=== PATIENT | male | born 1940 | race Caucasian/White ===

== ENCOUNTER 2020-02-29 22:49 | Emergency (ER) | payer MEDICARE, OTHER, SELFPAY ==
[2020-02-29 23:13] VITALS: BP 111/71; PULSE 66; RESP 16; TEMP 36.8; O2SAT 99; BMI 25.8
[2020-03-01] VITALS: BP 151/65; PULSE 66; RESP 16; TEMP 36.8; O2SAT 100
--- NOTE | 2020-03-01 00:32 | ED_ITS ---
HPI - Male Genitourinary General Chief complaint: Urogenital-Male Stated complaint: Catheter Issues Time Seen by Provider: 03/01/20 00:29 Source: patient History of Present Illness HPI Narrative: This is a 79-year-old male who presents with concerns regarding his catheter after the entire system was changed out today. He states that he is concerned that the urine has not been draining as usual in terms of amount. He denies any associated pain, fevers, chills. Related Data Home Medications Medication Instructions Recorded Confirmed donepezil 5 mg tablet 5 mg PO BEDTIME 02/27/20 tetracycline 250 mg capsule mg PO 02/27/20 Previous Rx's Medication Instructions Recorded ciprofloxacin HCl 250 mg tablet 250 mg PO BID 14 Days #28 tab 02/29/20 Allergies Allergy/AdvReac Type Severity Reaction Status Date / Time No Known Allergies Allergy Verified 02/27/20 13:33 [No Known Allergies*] Review of Systems Review of Systems: Pertinent positives and negatives as stated in HPI and 10 point review of systems is otherwise negative. PMFSH Past Medical History Source: nursing notes reviewed Medical History Cognitive decline Surgical History History of removal of cyst Family History Family History Father Esophageal cancer Mother Cerebral aneurysm Social History Social History Alcohol intake: never Smoking Status: Never smoker Use of substances other than those prescribed or required for medical reasons: No Advance Directives: No Advance Directives Information Provided: No Physical Exam Vital Signs: Vital Signs: Vital Signs Temp Pulse Resp BP Pulse Ox 03/01/20 00:00 98.3 F 66 16 151/65 H 100 02/29/20 23:13 98.3 F 66 16 111/71 99 Body Mass Index 25.8 VITAL SIGNS: Reviewed. GENERAL: Well developed, well nourished, in no acute distress. HEAD: Normocephalic/atraumatic, EYES: PERRLA, EOMI intact without pain, no nystagmus/pallor/icterus noted EARS: Ext canals without abnormality, TMs non-bulging and non-erythematous NOSE: Nares patent bilateral OROPHARYNX: no oral lesions noted, posterior pharynx clear and non-erythematous without noted tonsillar enlargement/erythema/exudates NECK: Supple, no adenopathy LUNGS: Normal breath sounds. No adventitious sounds or accessory muscle use. SpO2 <99> CARDIOVASCULAR: Regular rate and rhythm without noted murmurs, no JVD or lower extremity edema. ABDOMEN: Soft, non-tender, non-distended with bowel sounds. No rigidity. No guar ding. No palpable masses or hernias noted : Bunch catheter in place with clear yellow urine in the leg bag. MUSCULOSKELETAL: No tenderness, deformities, or effusions noted on gross inspection. EXTREMITIES: No cyanosis, clubbing or edema. SKIN: Inspection of the skin reveals no rashes, ulcerations, jaundice, pallor, or petechiae. NEUROLOGIC: Alert and oriented x 4. Strength and sensation to light touch were grossly intact x 4. Course Course Course Narrative: This is a 79-year-old male with history and clinical presentation of possible malfunction of Bunch catheter. Bladder scanned the bedside shows 20 cc of urine within the bladder which was communicated to the patient. He was reassured that the Bunch catheter is functioning as it should be and that he was stable for discharge to home. He was encouraged to return should he notice that there was no urine in the leg bag, or developed lower abdominal pain or discomfort, or fevers / chills. Discharge Plan Discharge Clinical Impression: Bunch catheter status Patient Disposition: Home, Self-Care Instructions: Bunch Catheter Placement and Care (ED) Additional Instructions: The patient and/or family acknowledge understanding of results (as applicable), diagnosis, treatment plan, need for follow up, and symptoms that should prompt a return to the emergency room. Prescriptions: No Action donepezil 5 mg tablet 5 mg PO BEDTIME RF: 0 tetracycline 250 mg capsule PO RF: 0 ciprofloxacin HCl 250 mg tablet 250 mg PO BID 14 Days Qty: 28 RF: 0 Referrals: Jayesh Urbina MD [Primary Care Provider] - 2 days ( for further management of the Bunch catheter care)
== END 2020-03-01 01:19 | disposition home or self-care (01) ==
PROVIDERS: Emergency Provider Student in an Organized Health Care Education/Training Program; PCP Internal Medicine
DX: T83.9XXA Unspecified complication of genitourinary prosthetic device, implant and graft, initial encounter (principal); Y73.8 Miscellaneous gastroenterology and urology devices associated with adverse incidents, not elsewhere classified; Y92.9 Unspecified place or not applicable; Z79.899 Other long term (current) drug therapy
CPT/HCPCS: 51703; 51798; 99283; 99284

== ENCOUNTER 2020-03-27 23:54 | Emergency (ER) | payer MEDICARE, OTHER, SELFPAY ==
[2020-03-28 00:01] VITALS: BP 145/80; PULSE 71; RESP 20; TEMP 36.4; O2SAT 100; BMI 25.7
--- NOTE | 2020-03-28 00:27 | ED_ITS ---
HPI - Male Genitourinary General Chief complaint: Urogenital-Male Stated complaint: catheter leaking Time Seen by Provider: 03/28/20 00:21 Source: patient Mode of arrival: EMS History of Present Illness HPI Narrative: 79-year-old male with chronic indwelling Bunch states here secondary to leakage of his Bunch at the insertion at his penis. Patient states no pain no fevers no chills no testicular pain. Patient states due to have a replaced in a couple of days and if we could just change it now. No abdominal pain or nausea no vomiting no fevers Related Data Home Medications Medication Instructions Recorded Confirmed tetracycline 250 mg capsule mg PO 02/27/20 Previous Rx's Medication Instructions Recorded donepezil 5 mg tablet 5 mg PO BEDTIME #90 tab 03/17/20 Allergies Allergy/AdvReac Type Severity Reaction Status Date / Time No Known Allergies Allergy Verified 03/28/20 00:00 [No Known Allergies*] Review of Systems Review of Systems: Constitutional : No Weight loss, No Fever, No Chills, No Ni ght Sweats, No Fatigue, No Malaise ENT/Mouth : No Hearing loss, No Ear Pain, No Nasal Congestion, No Sinus Pain, No Hoarseness, No sore throat, No Rhinorrhea, No Swallowing Difficulty Eyes: No Eye Pain, No Swelling, No Redness, No Foreign Body, No Discharge, No Vision Changes Cardiovascular : No Chest Pain, No SOB, No Dyspnea on Exertion, No Orthopnea, No Edema, No Palpitations Respiratory : No Cough, No Sputum, No Wheezing, No Smoke Exposure, No Dyspnea Gastrointestinal : No Nausea, No Vomiting, No Diarrhea, No Constipation, No abdominal Pain, No Hematochezia, No Melena Genitourinary : no irregular bleeding, No Dysuria, No Urinary Frequency, No Hematuria, Chronic indwelling Bunch Musculoskeletal : No joint pain, No Myalgias, No Joint Swelling Skin : No Skin Lesions, No rash Neuro : No Weakness, No Numbness, No Paresthesias, No Loss of Consciousness, No Dizziness, No Headache Psych : No Anxiety/Panic, No Depression, No SI/HI/AH/VH, No Social Issues, Heme/Lymph: No Bruising, No Bleeding,No Lymphadenopathy Endocrine : No Polyuria, No Polydipsia, No Temperature Intolerance [facility] Past Medical History Medical History Cognitive decline Surgical History History of removal of cyst Family History Family History Father Esophageal cancer Mother Cerebral aneurysm Social History Social History Alcohol intake: never Smoking Status: Never smoker Advance Directives: No Advance Directives Information Provided: Yes Physical Exam Vital Signs: Vital Signs: Last Vital Signs Temp 97.6 F 03/28/20 00:01 Pulse 71 03/28/20 00:01 Resp 20 03/28/20 00:01 BP 145/80 H 03/28/20 00:01 Pulse Ox 100 03/28/20 00:01 Body Mass Index 25.7 Vital signs reviewed Appearance: Alert. Oriented X3. No acute distress. Eyes: Pupils equal, round and reactive to light. ENT: Pharynx normal. Neck: Normal inspection. Neck supple. No lymph nodes noted. No crepitus CVS: Normal heart rate and rhythm. Pulses normal. Normal S1 and S2 Respiratory: No respiratory distress. Breath sounds normal. No Wheezing. No rales Abdomen: Soft and nontender. No rigidity. No distention. good BS x4 Skin: Skin warm and dry. Normal skin color. Normal skin turgor. Extremities: No lower extremity edema. Neurovascular intact to all extremities. No Lacerations. No Rash Neuro: Oriented X 3. No motor deficit. No sensory deficit. Moving all extermities. No slurred speech. Genital: No testicular tenderness. Chronic indwelling Bunch intact without drainage at penis insertion. No penile erythema no abscess Course Course Course Narrative: Chronic Bunch replaced by staff recommend to follow up with his urologist on Tuesday in which he has an appointment Positive flow Discharge Plan Discharge Clinical Impression: Complication of Bunch catheter Qualifiers: Encounter type: initial encounter Qualified Code(s): T83.9XXA - Unspecified complication of genitourinary prosthetic device, implant and graft, initial encounter Patient Disposition: Home, Self-Care Instructions: Bunch Catheter Placement and Care (ED) Prescriptions: No Action donepezil 5 mg tablet 5 mg PO BEDTIME Qty: 90 RF: 8 tetracycline 250 mg capsule PO RF: 0 [place] [facility] [place] [facility] [place] [facility] [place] Group[place] - 2 days
--- NOTE | 2020-03-28 01:07 | PC.NURSE ---
OLD SMART CATHETER REMOVED BY THIS RN. PATIENT REPORTS LEAKING AROUND OLD SMART CATHETER TUBING. DRIED CRUST NOTED AROUND TIP OF PENIS, CLEANED AND REMOVED BY THIS RN. NO OPEN WOUNDS NOTED ON PENIS. NEW 16F SMART CATHETER INSERTED BY THIS RN. DRAINING CLEAR YELLOW URINE INTO LEG BAG. LEG BAG SECURED TO PATIENT'S LEFT LEG. PLAN FOR DISCHARGE HOME SHORTLY, PER . WILL CONTINUE TO MONITOR.
== END 2020-03-28 01:25 | disposition home or self-care (01) ==
PROVIDERS: Emergency Provider Emergency Medicine; PCP Internal Medicine
DX: T83.9XXA Unspecified complication of genitourinary prosthetic device, implant and graft, initial encounter (principal); X58.XXXA Exposure to other specified factors, initial encounter; Z79.899 Other long term (current) drug therapy
CPT/HCPCS: 99283; 99284

== ENCOUNTER → 2020-04-18 14:17 | Outpatient (BNVA) | payer MEDICARE, OTHER, SELFPAY | PROVIDERS: PCP Internal Medicine; Visit Provider Urology | DX: N40.1 Benign prostatic hyperplasia with lower urinary tract symptoms (principal); N13.8 Other obstructive and reflux uropathy | CPT/HCPCS: 51701; 51702; 99212 ==

== ENCOUNTER → 2020-05-16 13:03 | Outpatient (BNVA) | payer MEDICARE, SELFPAY | PROVIDERS: PCP Internal Medicine; Visit Provider Urology | DX: Z46.6 Encounter for fitting and adjustment of urinary device (principal) | CPT/HCPCS: 51701 ==

== ENCOUNTER → 2020-06-12 09:52 | Outpatient (BNVA) | payer MEDICARE, SELFPAY | PROVIDERS: PCP Internal Medicine; Visit Provider Urology | DX: N40.1 Benign prostatic hyperplasia with lower urinary tract symptoms (principal); N31.8 Other neuromuscular dysfunction of bladder; N13.8 Other obstructive and reflux uropathy; R33.8 Other retention of urine; Z46.6 Encounter for fitting and adjustment of urinary device | CPT/HCPCS: 51701; 51702; 99212 ==

== ENCOUNTER → 2020-07-11 13:54 | Outpatient (BNVA) | payer MEDICARE, OTHER, SELFPAY | PROVIDERS: PCP Internal Medicine; Visit Provider Urology | DX: Z46.6 Encounter for fitting and adjustment of urinary device (principal) | CPT/HCPCS: 51701; 51702; 99212; Q3014 ==

== ENCOUNTER → 2020-08-08 13:55 | Outpatient (BNVA) | payer MEDICARE, OTHER, SELFPAY | PROVIDERS: PCP Internal Medicine; Visit Provider Urology | DX: R33.9 Retention of urine, unspecified (principal) | CPT/HCPCS: 51701; 51702; 99212 ==

== ENCOUNTER → 2020-09-05 14:34 | Outpatient (BNVA) | payer MEDICARE, OTHER, SELFPAY | PROVIDERS: PCP Internal Medicine; Visit Provider Urology | DX: Z46.6 Encounter for fitting and adjustment of urinary device (principal); R33.9 Retention of urine, unspecified | CPT/HCPCS: 51701; 51702; 51705; 99212 ==

== ENCOUNTER → 2020-10-03 14:08 | Outpatient (BNVA) | payer MEDICARE, OTHER, SELFPAY | PROVIDERS: PCP Internal Medicine; Visit Provider Urology | DX: Z46.6 Encounter for fitting and adjustment of urinary device (principal); R33.9 Retention of urine, unspecified | CPT/HCPCS: 51701; 51702; 51705; 99212 ==

== ENCOUNTER → 2020-10-31 14:05 | Outpatient (BNVA) | payer MEDICARE, OTHER, SELFPAY | PROVIDERS: PCP Internal Medicine; Visit Provider Urology | DX: Z46.6 Encounter for fitting and adjustment of urinary device (principal); R33.9 Retention of urine, unspecified | CPT/HCPCS: 51701; 51702; 51705; 99212 ==

== ENCOUNTER → 2020-11-28 13:38 | Outpatient (BNVA) | payer MEDICARE, OTHER, SELFPAY | PROVIDERS: PCP Internal Medicine; Visit Provider Urology | DX: R33.9 Retention of urine, unspecified (principal) | CPT/HCPCS: 51701; 51702; 99212 ==

== ENCOUNTER → 2020-12-30 14:37 | Outpatient (BNVA) | payer MEDICARE, OTHER, SELFPAY | PROVIDERS: PCP Internal Medicine; Visit Provider Urology | DX: Z46.6 Encounter for fitting and adjustment of urinary device (principal); R33.9 Retention of urine, unspecified | CPT/HCPCS: 51701; 51705; 99212 ==

== ENCOUNTER → 2021-01-30 14:22 | Outpatient (BNVA) | payer MEDICARE, OTHER, SELFPAY | PROVIDERS: PCP Internal Medicine; Visit Provider Urology | DX: R33.9 Retention of urine, unspecified (principal) | CPT/HCPCS: 51705 ==

== ENCOUNTER → 2021-02-27 14:24 | Outpatient (BNVA) | payer MEDICARE, OTHER, SELFPAY | PROVIDERS: PCP Internal Medicine; Visit Provider Urology | DX: Z46.6 Encounter for fitting and adjustment of urinary device (principal); R33.9 Retention of urine, unspecified | CPT/HCPCS: 51705 ==

== ENCOUNTER → 2021-03-30 12:55 | Outpatient (BNVA) | payer MEDICARE, SELFPAY | PROVIDERS: PCP Internal Medicine; Visit Provider Urology | DX: N13.8 Other obstructive and reflux uropathy (principal) | CPT/HCPCS: 51705 ==

== ENCOUNTER → 2021-04-27 13:29 | Outpatient (BNVA) | payer MEDICARE, OTHER, SELFPAY | PROVIDERS: PCP Internal Medicine; Visit Provider Urology | DX: R33.9 Retention of urine, unspecified (principal) | CPT/HCPCS: 51705 ==

== ENCOUNTER → 2021-05-25 13:24 | Outpatient (BNVA) | payer MEDICARE, OTHER, SELFPAY | PROVIDERS: Visit Provider Urology | DX: R33.9 Retention of urine, unspecified (principal) | CPT/HCPCS: 51705 ==

== ENCOUNTER → 2021-06-23 13:23 | Outpatient (BNVA) | payer MEDICARE, OTHER, SELFPAY | PROVIDERS: PCP Internal Medicine; Visit Provider Urology | DX: R33.9 Retention of urine, unspecified (principal) | CPT/HCPCS: 51702; 51705 ==

== ENCOUNTER → 2021-07-20 13:20 | Outpatient (BNVA) | payer MEDICARE, OTHER, SELFPAY | PROVIDERS: PCP Internal Medicine; Visit Provider Urology | DX: Z46.6 Encounter for fitting and adjustment of urinary device (principal); Z96.0 Presence of urogenital implants | CPT/HCPCS: 51702 ==

== ENCOUNTER 2021-08-10 08:45 | Outpatient (REF) | payer MEDICARE, OTHER, SELFPAY ==
[2021-08-10 11:32] LABS: Hematocrit 44.7 % (42.0-52.0); Hemoglobin 14.5 g/dl (14.0-18.0); Mean Corpuscular HGB Conc 32.4 g/dl (31.0-36.0); Mean Corpuscular Hemoglobin 30.4 pg (27.0-33.0); Mean Corpuscular Volume 93.7 fL (80.0-98.0); Mean Platelet Volume 9.5 fL (9.4-12.4); Platelet Count 266 X10*3/uL (160-400); Red Blood Count 4.77 X10*6/uL (4.60-5.80); Red Cell Distribution Width 12.3 % (11.0-16.0); White Blood Count 6.8 X10*3/uL (4.8-10.8)
[2021-08-10 11:38] LABS: Alanine Aminotransferase 23 U/L (0-40); Albumin Level 4.3 g/dL (3.5-5.0); Alkaline Phosphatase 70 U/L (39-117); Anion Gap 13 (12-20); Aspartate Amino Transferase 22 U/L (5-37); Bilirubin Total 0.7 mg/dL (0.0-1.0); Blood Urea Nitrogen 21 mg/dL (9-16); Calcium 9.8 mg/dL (8.4-10.2); Carbon Dioxide 27 mmol/L (22-29); Chloride 105 mmol/L (96-108); Cholesterol 320 mg/dL; Estimated Glomerular Filt Rate 49; Glucose Fasting 94 mg/dL (60-99); HDL Cholesterol 57 mg/dL; LDL Cholesterol Calculated 219 mg/dl; Potassium 4.3 mmol/L (3.3-5.1); Sodium 141 mmol/L (135-145); Total Protein 6.9 g/dL (6.5-8.0); Triglycerides 222 mg/dL
[2021-08-10 12:04] LABS: Prostate Specific Antigen Scr 44.19 ng/mL (<0.05-4.0)
== END 2021-08-10 08:46 | disposition home or self-care (01) ==
LOC: HO.HMGCLDS 08:45
PROVIDERS: PCP Internal Medicine; Visit Provider Nurse Practitioner Family
DX: Z00.00 Encounter for general adult medical examination without abnormal findings (principal); Z12.5 Encounter for screening for malignant neoplasm of prostate; E78.00 Pure hypercholesterolemia, unspecified; F41.9 Anxiety disorder, unspecified
CPT/HCPCS: 36415; 80053; 80061; 84153; 85027

== ENCOUNTER → 2021-08-18 13:24 | Outpatient (BNVA) | payer MEDICARE, OTHER, SELFPAY | PROVIDERS: PCP Internal Medicine; Visit Provider Urology | DX: R33.9 Retention of urine, unspecified (principal) | CPT/HCPCS: 51702 ==

== ENCOUNTER 2021-09-15 13:35 | Outpatient (AMB) | payer MEDICARE, OTHER, SELFPAY ==
--- NOTE | 2021-09-15 13:36 | A.OFFVIS_ITS ---
Intake Intake Visit Reasons: PSA follow up/4 week Cath Change(PSA?) Intake Note: Patient is present for psa/ catheter change Classification Inspector Required: No Accompanied by: Self / Same As Patient Allergies amoxicillin Allergy (Unknown, Verified 01/28/22 15:07) Unknown [id number] Reductase Inhibitor Allergy (Unknown, Verified 01/28/22 15:07) Unknown Medication List - Last Reconciled 09/15/21 by Jhony Cote MD ciprofloxacin HCl 250 mg PO BID 30 days donepezil 5 mg PO BEDTIME erythromycin 0.5 inches ophthalmic (eye) BID finasteride 5 mg PO DAILY 90 days urinary bag (Urinary Leg Bag) As directed urinary bag ([facility] Urinary Leg Bag) Change weekly HPI HPI Comments History of Present Illness Details Iván is a pleasant male. He is a patient of Dr Urbina - urinary retention Catheter change would suggest changing catheter monthly at facility Developing dementia Urinary retention Bladder has not recovered following episode of urinary retention Laser to prostate March 2019 Bunch catheter changed today with antibiotic coverage Discussed use of cap to cycle bladder Review in 4 weeks for catheter change PSA 10/16 8.1, 08/21 44 PFSH Medical History Cognitive decline Surgical History History of removal of cyst Family History Father Esophageal cancer Mother Cerebral aneurysm Social History Housing: Condominium Alcohol intake: unknown Patient Tobacco Use Status: Never used Tobacco e-Cigarette/Vaping Use: Never Used Second Hand Smoke Exposure: No Advance Directives: Yes Advance Directives on File: Yes Advance Directives Date on File: 10/22/21 service: Yes Current occupational status: retired Cognitive needs: No Hearing needs: No Vision needs: Yes (glasses) Review of Systems Const Denies chills and Denies fever(s) Card Reports no additional complaints and Denies syncope Resp Denies cough GI Denies abdominal pain and Denies heartburn Reports as per HPI and Denies change in libido Neuro Denies syncope Psych Denies change in libido Endo Denies change in libido Physical Exam Const General: cooperative, healthy appearing, comfortable and no acute distress Orientation/consciousness: patient oriented x3 HEENT Face and sinus: Yes normal facial exam Mouth: moist mucous membranes Neck Neck: Yes normal visual inspection, Yes full ROM and Yes trachea midline Chest Chest palpation & inspection: normal inspection of the chest Resp Effort & Inspection: normal respiratory effort, able to speak in complete sentences and no respiratory distress GI Inspection: Yes normal to inspection Back/Spine/Pelvis Cervical Spine: normal cervical lordosis Thoracic/Lumbar Spine: thoracic and lumbar spine normal to inspection Skin General skin exam: no rashes or lesions noted Neuro General: patient oriented x3, gait normal, tone normal and moves all extremities Extrem General: Yes normal to inspection and Yes capillary refill normal Office Procedures Bladder/Catheter Procedure 43582-[id number] Bladder Catheter (Patient had 18 fr catheter. Urine in leg bag was yellow and clear. Catheter was removed with no complications. New 18 fr catheter was placed with 10cc of sterile water in balloon) Procedure code (CPT) selection complete Assessment & Plan Assessment & Plan (1) Urinary retention with incomplete bladder emptying: Code(s): R33.9 - Retention of urine, unspecified (2) BPH w urinary obs/LUTS: Code(s): N40.1 - Benign prostatic hyperplasia with lower urinary tract symptoms; N13.8 - Other obstructive and reflux uropathy Orders: Orders PSA,Total (Free>4and<10) 2 Months N40.1 - Benign prostatic hyperplasia with lower urinary tract symptoms, N13.8 - Other obstructive and reflux uropathy AMB Bladder/Catheter Procedure 09/15/21 R33.9 - Retention of urine, unspecified Medications: New finasteride 5 mg PO DAILY 90 tabs 1RF 90 days R33.9 - Retention of urine, unspecified, C61 - Malignant neoplasm of prostate Patient Instructions: Imaging studies, laboratory and physical exam results were discussed and reviewed in detail. No major barriers to patient understanding were identified. An opportunity to ask questions regarding the treatment plan was provided. All questions were answered. The patient expressed understanding and agreement with the above treatment plan. The patient is aware they should contact our office by phone for worsening of their current condition or the appearance of new urologic symptoms. Compliance is encouraged with any medications and followup testing that is ordered. It is a privilege to participate in the urologic care of your patient. If you have any questions or concerns regarding treatment for the above conditions, or other urologic issues, please do not hesitate to contact me. The office telephone contact is [phone]. This note is constructed using voice recognition software. While every effort has been made to ensure accuracy machine set up errors may have been included. Yours sincerely, Dr Jhony Cote MD, [facility] - Urology Providers of Expert, Compassionate Care for the Genitourinary System Coding Level of Care Code Est Pt Level 3 (03385) Diagnoses Urinary retention with incomplete bladder emptying R33.9 BPH w urinary obs/LUTS N40.1; N13.8 CPT Codes Bladder/Catheter Procedure - CPT: 78891-[id number] Bladder Catheter ([id number])
== END 2021-09-15 14:23 | disposition home or self-care (01) ==
LOC: HO.HUSH 13:35
PROVIDERS: PCP Internal Medicine; Visit Provider Urology
DX: R33.9 Retention of urine, unspecified (principal); N40.1 Benign prostatic hyperplasia with lower urinary tract symptoms; N13.8 Other obstructive and reflux uropathy
CPT/HCPCS: 51701; 99213

== ENCOUNTER → 2021-09-15 13:35 | Outpatient (BNVA) | payer MEDICARE, OTHER, SELFPAY | PROVIDERS: PCP Internal Medicine; Visit Provider Urology | DX: N40.1 Benign prostatic hyperplasia with lower urinary tract symptoms (principal); N13.8 Other obstructive and reflux uropathy; R33.9 Retention of urine, unspecified | CPT/HCPCS: 51701; 99212 ==

== ENCOUNTER → 2021-10-13 13:19 | Outpatient (BNVA) | payer MEDICARE, OTHER, SELFPAY | PROVIDERS: PCP Internal Medicine; Visit Provider Urology | DX: Z46.6 Encounter for fitting and adjustment of urinary device (principal); R33.9 Retention of urine, unspecified | CPT/HCPCS: 51702 ==

== ENCOUNTER 2021-10-22 08:50 | Emergency (ER) | payer MEDICARE, OTHER, SELFPAY ==
--- NOTE | 2021-10-22 08:56 | ED_ITS ---
HPI - General Adult General Chief complaint: Urogenital-Male Stated complaint: F/C LEAKING,AMS Time Seen by Provider: 10/22/21 08:56 Source: patient, family (sister) and EMS Mode of arrival: EMS Limitations: altered mental status (patient has a history of dementia) History of Present Illness HPI narrative: Patient is a 80 year old male presenting to the emergency department today with possible catheter leaking. Patient states that his dang catheter is leaking. Patient's sister states that the patient has been obsessed with the catheter being wrong however, it isn't. Patient's sister states that the patient has worsening dementia and she would like to seek placement for him. Patient denies any dizziness, lightheadedness, abdominal pain, nausea, vomiting, fever, chills, blurry vision, double vision, loss of vision, chest pain, difficulty breathing, shortness of breath, back pain, night sweats, blood in his urine or stool, syncope or a near syncopal episode, recent trauma or falls, bowel incontinence, bowel retention, bladder retention, or any other complaints at this time. Relieving factors: none Exacerbating factors: none Associated symptoms: denies other symptoms Treatments prior to arrival: none Related Data Previous Rx's Medication Instructions Recorded urinary bag ([place] Urinary Leg Bag) #4 ea 11/28/20 urinary bag (Urinary Leg Bag) #3 ea 11/28/20 donepezil 5 mg tablet 5 mg PO BEDTIME #90 tabs 05/25/21 ciprofloxacin HCl 250 mg tablet 250 mg PO BID 30 days #60 tabs 09/15/21 finasteride 5 mg tablet 5 mg PO DAILY 90 days #90 tabs 09/15/21 atorvastatin 20 mg tablet 20 mg PO DAILY #90 tabs 09/25/21 sulfamethoxazole 800 1 tab PO BID 7 days #14 tabs 10/19/21 mg-trimethoprim 160 mg tablet (Bactrim DS) Allergies Allergy/AdvReac Type Severity Reaction Status Date / Time No Known Allergies Allergy Verified 09/25/21 13:58 [No Known Allergies*] Review of Systems Constitutional: Constitutional: Reports no additional constitutional complaints, Denies chills, Denies fever(s) and Denies night sweats Eyes: Eyes: Reports no additional eye complaints, Denies blurry vision, Denies change in vision, Denies diplopia, Denies eye discharge, Denies loss of vision and Denies eye pain ENT: Denies dizziness Cardiovascular: Cardiovascular: Reports no additional cardiovascular complaints, Denies chest pain, Denies lightheadedness, Denies Loss of Consciousness and Denies dyspnea Respiratory: Respiratory: Reports no additional respiratory complaints and Denies dyspnea Gastrointestinal: Gastrointestinal: Reports no additional gastrointestinal complaints, Denies abdominal pain, Denies melena, Denies hematochezia, Denies change in bowel habits and Denies change in stool character Genitourinary: Genitourinary: Reports no additional male genitourinary complaints, Denies hematuria and Denies oliguria Comments: dang catheter in place Musculoskeletal: Musculoskeletal: Reports no additional musculoskeletal complaints, Denies numbness and Denies tingling Neurologic: Reports confusion, Denies dizziness, Denies loss of vision, Rep orts memory loss, Denies numbness and Denies tingling Psychiatric: Psychiatric: Reports no additional psychiatric complaints, Reports confusion and Reports memory loss Endocrine: Endocrine: Reports no additional endocrine complaints Hematologic/Lymphatic: Hematologic/Lymphatic: Reports no additional hematologic/lymphatic complaints Allergic/Immunologic: Allergic/Immunologic: Reports no additional allergic/immunologic complaints [facility] Past Medical History Attestation statement: The following information was validated with the patient. Source: old records reviewed Surgical History History of removal of cyst Family History Family History Father Esophageal cancer Mother Cerebral aneurysm Social History Social History Housing: Condominium Alcohol intake: unknown Patient Tobacco Use Status: Never used Tobacco Smoked in Last 30 Days: No e-Cigarette/Vaping Use: Never Used Second Hand Smoke Exposure: No Use of substances other than those prescribed or required for medical reasons: Unknown Advance Directives: Yes Advance Directives Information Provided: No Advance Directives on File: No service: Yes Current occupational status: retired Cognitive needs: No Hearing needs: No Vision needs: Yes (glasses) Physical Exam ED Vital Signs: Vital Signs - 24 hr 10/22/21 09:07 10/22/21 10:36 10/22/21 12:00 Temperature 98.5 F 98.5 F Pulse Rate 82 82 69 Respiratory Rate 18 19 Blood Pressure 177/94 H 177/94 H 171/93 H Pulse Oximetry 100 100 98 Oxygen Delivery Method Room Air Room Air 10/22/21 15:52 Temperature 97.9 F Pulse Rate 70 Respiratory Rate 16 Blood Pressure 177/77 H Pulse Oximetry 100 Oxygen Delivery Method Room Air BMI result Body Mass Index 24.8 Const General: confusion Nutritional Appearance: well nourished Orientation/consciousness: confusion Limitations: no limitations HENMT Head: Yes normal to inspection and Yes atraumatic Ears: hearing grossly normal bilaterally and external ears normal General nose exam: Normal external nose present, no nasal discharge noted and no epistaxis Face and sinus: Yes normal facial exam, No abrasion and No laceration Mouth: Normal oral and palatal mucosa present, no drooling and no muffled voice Eyes General: appearance normal, both eyes and all related structures Periorbital: periorbital findings normal Eyelids: Yes eyelids normal Conjunctivae: conjunctivae normal Pupils: Equal, round and reactive pupils present EOM: EOMs intact bilaterally Neck Neck: Yes normal visual inspection, Yes full ROM and Yes no lymphadenopathy Chest Chest palpation & inspection: normal inspection of the chest Resp Effort & Inspection: normal respiratory effort and able to speak in complete sentences Auscultation: clear to auscultation bilaterally Cardio Rate: regular rate Rhythm: regular rhythm GI Inspection: Yes normal to inspection Other: dang catheter in place Neuro General: confusion Cranial nerves: Yes Equal, round and reactive pupils present Motor exam (neuro): 5/5 motor strength present throughout Sensory Exam: Normal double simultaneous stimulation for sensation Coordination: [id number] test normal Extrem General: Yes normal to inspection, Yes full ROM and Yes capillary refill normal Psych Appearance: grossly normal Mental Status: mental status grossly normal Affect: normal affect Attitude: cooperative Thought process: Normal thought process present Thought content: Normal thought content present Insight: Good insight present (Psych) Medical Decision Making MDM Narrative Medical decision making narrative: Patient is a 80 year old male presenting to the emergency department today for SNF placement. Patient's physical exam showed a pleasantly demented individual with a dang catheter that is draining appropriately, in place. Patient's blood work was unremarkable. Patient's urine showed no acute process. I explained my physical exam findings as well as all test results to the patient and the patient's sister. I answered all questions asked by the patient and the patien t's sister. Patient evaluated by PT who recommends the patient go to short term rehab then halfway rehab transition. Patient has been accepted at a SNF and will be discharged to their facility. Differential Diagnosis Differential Diagnosis: SNF placement, dementia Medical Records Medical records reviewed: Yes I reviewed the patient's medical records. Lab Data Lab results reviewed: Yes I reviewed the patient's lab results. Result diagrams: 10/22/21 09:24 10/22/21 09:24 Labs: Lab Results 10/22/21 10/22/21 10/22/21 Range/Units 09:24 09:24 09:24 WBC 6.5 (4.8-10.8) X10*3/uL RBC 4.20 L (4.60-5.80) X10*6/uL Hgb 12.8 L (14.0-18.0) g/dl Hct 39.0 L (42.0-52.0) % MCV 92.9 (80.0-98.0) fL MCH 30.5 (27.0-33.0) pg MCHC 32.8 (31.0-36.0) g/dl RDW 12.2 (11.0-16.0) % Plt Count 209 (160-400) X10*3/uL MPV 9.5 (9.4-12.4) fL Immature Gran % (Auto) 0.5 H (0.0-0.4) % Neut % (Auto) 70.0 (45-73) % Lymph % (Auto) 19.4 L (20-40) % [place] % (Auto) 7.4 (2-11) % Eos % (Auto) 2.2 (0-4) % Baso % (Auto) 0.5 (0-2) % Lymph # (Auto) 1.3 (1.2-4.9) X10*3/uL [place] # (Auto) 0.5 (0.1-1.2) X10*3/uL Eos # (Auto) 0.1 (0.0-0.4) X10*3/uL Baso # (Auto) 0.0 (0.0-0.2) X10*3/uL Abs Immat Gran (auto) 0.03 (0.00-0.03) X10*3/uL Absolute Neuts (auto) 4.5 (2.0-8.3) x10*3/uL Absolute Nucleated RBC 0.000 (0.0-0.012) X10*3/uL Nucleated RBC % (auto) 0.0 (0.0-0.2) /100WBC Sodium 140 (135-145) mmol/L Potassium 4.5 (3.3-5.1) mmol/L Chloride 106 (96-108) mmol/L Carbon Dioxide 26 (22-29) mmol/L Anion Gap 13 (12-20) BUN 21 H (9-16) mg/dL Creatinine 1.80 H (0.5-1.4) mg/dL Estim Creat Clear Calc 36.0 Estimated GFR 37 Random Glucose 103 (60-115) mg/dL Calcium 9.3 (8.4-10.2) mg/dL Magnesium 2.3 (1.6-2.6) mg/dL Total Bilirubin 0.6 (0.0-1.0) mg/dL AST 26 (5-37) U/L ALT 26 (0-40) U/L Alkaline Phosphatase 70 (39-117) U/L Total Protein 6.8 (6.5-8.0) g/dL Albumin 4.4 (3.5-5.0) g/dL Urine Color Urine Appearance Urine pH (5.0-8.0) Ur Specific [place] (1.005-1.025) Urine Protein (NEG-TRACE) MG/DL Urine Glucose (UA) (NEG) MG/DL Urine Ketones (NEG) MG/DL Urine Blood (NEG) Urine Nitrite (NEG) Ur Leukocyte Esterase (NEG) Urine RBC (0) /HPF Urine WBC (0-4) /HPF Ur Squamous Epith Cells /LPF Urine Bacteria /LPF Urine Yeast /HPF COVID-19 ([facility]) Negative (Negative) COVID-19 Clin Com See Note 10/22/21 Range/Units 09:58 WBC (4.8-10.8) X10*3/uL RBC (4.60-5.80) X10*6/uL Hgb (14.0-18.0) g/dl Hct (42.0-52.0) % MCV (80.0-98.0) fL MCH (27.0-33.0) pg MCHC (31.0-36.0) g/dl RDW (11.0-16.0) % Plt Count (160-400) X10*3/uL MPV (9.4-12.4) fL Immature Gran % (Auto) (0.0-0.4) % Neut % (Auto) (45-73) % Lymph % (Auto) (20-40) % [place] % (Auto) (2-11) % Eos % (Auto) (0-4) % Baso % (Auto) (0-2) % Lymph # (Auto) (1.2-4.9) X10*3/uL [place] # (Auto) (0.1-1.2) X10*3/uL Eos # (Auto) (0.0-0.4) X10*3/uL Baso # (Auto) (0.0-0.2) X10*3/uL Abs Immat Gran (auto) (0.00-0.03) X10*3/uL Absolute Neuts (auto) (2.0-8.3) x10*3/uL Absolute Nucleated RBC (0.0-0.012) X10*3/uL Nucleated RBC % (auto) (0.0-0.2) /100WBC Sodium (135-145) mmol/L Potassium (3.3-5.1) mmol/L Chloride (96-108) mmol/L Carbon Dioxide (22-29) mmol/L Anion Gap (12-20) BUN (9-16) mg/dL Creatinine (0.5-1.4) mg/dL Estim Creat Clear Calc Estimated GFR Random Glucose (60-115) mg/dL Calcium (8.4-10.2) mg/dL Magnesium (1.6-2.6) mg/dL Total Bilirubin (0.0-1.0) mg/dL AST (5-37) U/L ALT (0-40) U/L Alkaline Phosphatase (39-117) U/L Total Protein (6.5-8.0) g/dL Albumin (3.5-5.0) g/dL Urine Color STRAW Urine Appearance HAZY Urine pH 7.0 (5.0-8.0) Ur Specific [place] 1.010 (1.005-1.025) Urine Protein NEG (NEG-TRACE) MG/DL Urine Glucose (UA) NEG (NEG) MG/DL Urine Ketones NEG (NEG) MG/DL Urine Blood 1+ H (NEG) Urine Nitrite POS H (NEG) Ur Leukocyte Esterase 3+ H (NEG) Urine RBC 1-4 (0) /HPF Urine WBC 30-49 H (0-4) /HPF Ur Squamous Epith Cells NONE /LPF Urine Bacteria TRACE /LPF Urine Yeast 3+ /HPF COVID-19 ([facility]) (Negative) COVID-19 Clin Com Discharge Plan Discharge Clinical Impression: Cognitive decline Patient Disposition: Xfer Inpatient Rehab Fac Transfer Details: [facility] Instructions: Dementia (ED) Additional Instructions: Follow up with your primary care provider. Return to the emergency department immediately if your symptoms worsen or if you develop any dizziness, shortness of breath, difficulty breathing, chest pain, blurry vision, loss of vision, nausea, vomiting, abdominal pain, fever, chills, back pain, or any other com plaints. Prescriptions: No [facility] donepezil 5 mg tablet 5 mg PO BEDTIME Qty: 90 8RF sulfamethoxazole-trimethoprim [Bactrim DS] 800-160 mg tablet 1 tab PO BID 7 Days Qty: 14 0RF atorvastatin 20 mg tablet 20 mg PO DAILY Qty: 90 8RF (DME) [place] Urinary Leg Bag Misc See Rx Instructions .MEDSUPPLY Qty: 4 5RF Rx Instructions: Change weekly (DME) Urinary Leg Bag Misc See Rx Instructions .MEDSUPPLY Qty: 3 1RF Rx Instructions: As directed ciprofloxacin HCl 250 mg tablet 250 mg PO BID 30 Days Qty: 60 0RF Label Comments: 1 before and after catheter change Rx Instructions: Take 1 tablet twice a day day before, day of and day after catheter change finasteride 5 mg tablet 5 mg PO DAILY 90 Days Qty: 90 1RF Referrals: [facility] [Outside] Print Language: Romansh
[2021-10-22 08:57] VITALS: BP 168/70; PULSE 78; O2SAT 98
[2021-10-22 09:07] VITALS: BP 177/94; PULSE 82; RESP 18; TEMP 36.9; O2SAT 100; BMI 24.8
[2021-10-22 09:29] LABS: MANUAL DIFF FLAG NO
[2021-10-22 09:33] LABS: Basophils Percent Auto 0.5 % (0-2); Eosinophils Absolute Auto 0.1 X10*3/uL (0.0-0.4); Eosinophils Percent Auto 2.2 % (0-4); Hemoglobin 12.8 g/dl (14.0-18.0); Imm Gran Abs Auto 0.03 X10*3/uL (0.00-0.03); Imm Gran Pct Auto 0.5 % (0.0-0.4); Lymphocytes Absolute Auto 1.3 X10*3/uL (1.2-4.9); Lymphocytes Percent Auto 19.4 % (20-40); Mean Corpuscular HGB Conc 32.8 g/dl (31.0-36.0); Mean Corpuscular Hemoglobin 30.5 pg (27.0-33.0); Mean Corpuscular Volume 92.9 fL (80.0-98.0); Mean Platelet Volume 9.5 fL (9.4-12.4); Monocytes Absolute Auto 0.5 X10*3/uL (0.1-1.2); Monocytes Percent Auto 7.4 % (2-11); Neutrophils Absolute Auto 4.5 x10*3/uL (2.0-8.3); Platelet Count 209 X10*3/uL (160-400); Red Cell Distribution Width 12.2 % (11.0-16.0); White Blood Count 6.5 X10*3/uL (4.8-10.8)
[2021-10-22 09:49] LABS: Alanine Aminotransferase 26 U/L (0-40); Albumin Level 4.4 g/dL (3.5-5.0); Alkaline Phosphatase 70 U/L (39-117); Anion Gap 13 (12-20); Aspartate Amino Transferase 26 U/L (5-37); Bilirubin Total 0.6 mg/dL (0.0-1.0); Blood Urea Nitrogen 21 mg/dL (9-16); Calcium 9.3 mg/dL (8.4-10.2); Carbon Dioxide 26 mmol/L (22-29); Chloride 106 mmol/L (96-108); Estimated Glomerular Filt Rate 37; Glucose Random 103 mg/dL (60-115); Magnesium 2.3 mg/dL (1.6-2.6); Potassium 4.5 mmol/L (3.3-5.1); Sodium 140 mmol/L (135-145); Total Protein 6.8 g/dL (6.5-8.0)
[2021-10-22 10:06] LABS: Appearance Urine HAZY; Color Urine STRAW; Glucose Urine UA NEG (NEG); Leukocyte Esterase Urine 3+ (NEG); Nitrite Urine POS (NEG); UACC Culture Trigger YES; Urine Blood 1+ (NEG); Urine Ketones NEG (NEG); Urine Protein NEG (NEG-TRACE)
[2021-10-22 10:07] LABS: COVID-19 Test Negative (Negative); IDNOW Serial# 55D5AD1C
[2021-10-22 10:19] LABS: WBC Urine 30-49 /HPF (0-4)
[2021-10-22 10:20] LABS: Bacteria Urine TRACE /LPF
[2021-10-22 10:36] VITALS: BP 177/94; PULSE 82; O2SAT 100
--- NOTE | 2021-10-22 10:42 | PC.NURSE ---
Pt reports to the ED today stating that his catheter has been leaking and dripping down his leg for one week. This engineering technical writer and DARSHAN Garcia assessed his catheter, no leakage, discharge or redness noted. Urine sample obtained. Pt is alert to self only. Bilateral foot/ankle 3+ edema noted, pts sister states edema has been present for 10+ years with no issues. Pts sister requested to speak with case management about possible nursing home placement for pt. Pts sister spoke with Adrienne, Catering Truck Driver.
--- NOTE | 2021-10-22 10:46 | MHC.CM.ED ---
Addendum entered by Lizette Nava 10/22/21 13:52: [facility] [address] [facility]'t [facility] a bed to offer. Cindy aware referral broadcasted in [facility]. [facility] is next choice. They're unable to offer a bed at this time. [facility] is next choice. [facility] is able to offer a bed. Patient can leave at 4pm. Patient, Radha White RN and Michelle EDMOND aware. [facility] booked. Med nec with chart. Continue to monitor for d/c needs. Original Note: Received case management consult from Michelle EDMOND. Patient came to the ER due to AMS and a leaking dang. Work up essentially negative. Physical therapy eval completed. Short term rehab is recommended. Patient has a history of dementia. Met with patient's sister, Cindy at [facility]. Patient came to Cindy's house 2 years ago to stay and has been living there ever since. Patient has been experiencing increased falls and dementia symptoms. Cindy has a copy of patient's HCP. Patient received Moderna vaccines 08/20/20, 09/17/20 and 04/10/21. Cindy requesting referral to [facility] [address]. Referral made via [facility]. Continue to monitor for d/c needs.
--- NOTE | 2021-10-22 11:38 | PHA.MEDREC ---
Pharmacy Consult ? Medication Reconciliation Pharmacy has completed the medication reconciliation Spoke with sister Cindy, she confirmed all medications. All medications were last taken last night, bactrim was taken this morning.
[2021-10-22 12:00] VITALS: BP 171/93; PULSE 69; RESP 19; TEMP 36.9; O2SAT 98
[2021-10-22 15:52] VITALS: BP 177/77; PULSE 70; RESP 16; TEMP 36.6; O2SAT 100
== END 2021-10-22 16:37 ==
PROVIDERS: Physician Assistant Medical; Emergency Provider Student in an Organized Health Care Education/Training Program; PCP Internal Medicine
DX: F03.90 Unspecified dementia, unspecified severity, without behavioral disturbance, psychotic disturbance, mood disturbance, and anxiety (principal); Z96.0 Presence of urogenital implants; Z20.822 Contact with and (suspected) exposure to COVID-19
CPT/HCPCS: 80053; 81001; 83735; 85025; 87086; 87635; 97162; 99284

== ENCOUNTER 2021-11-21 22:00 | Emergency (ER) | payer MEDICARE, OTHER, SELFPAY ==
--- NOTE | ~2021-11-21 | CT_ITS ---
EXAMINATION: NONCONTRAST HEAD CT NONCONTRAST CERVICAL SPINE CT INDICATION INFORMATION: Fall, head injury and neck pain COMPARISON: 11/22/2019 TECHNIQUE: Separate noncontrast CT examinations of the head and cervical spine were performed. Coronal head CT images and coronal and sagittal cervical spine images were created at the technologist workstation. DLP: 1117 mGy-cm DOSE LOWERING TECHNIQUES: This CT examination was performed using dose optimization techniques as appropriate, variously including the following: - Automated exposure control - Adjustment of mA and/or kV according to patient size (this includes techniques or standardized protocols for targeted exams were dose is matched to indication/reason for exam; i.e. extremities or head) - Use of iterative reconstruction technique FINDINGS: Head: Limited assessment in some regions due to motion artifact. There is no evidence of acute intracranial hemorrhage or territorial infarction. No abnormal mass-effect or midline shift is seen. [place]wood to white matter differentiation is well preserved. No extra-axial fluid collections are identified. The ventricles are normal in size. There is mild periventricular white matter hypoattenuation consistent with chronic small vessel ischemic disease. Moderate volume loss is noted. The osseous structures and soft tissues are normal. The mastoid air cells and visualized portions of the paranasal sinuses are well-aerated. Cervical spine: There is anatomic alignment of the vertebral bodies and posterior elements. Vertebral body heights are maintained. There is disc space narrowing of the lower cervical spine with associated endplate osteophytes. There is degenerative change at the atlantodens articulation. There is mild to moderate facet arthropathy, left-sided greater than right. No evidence of acute fracture. No prevertebral soft tissue swelling. Left submandibular calcification noted. Visualized portions of the lung apices are unremarkable. The thyroid gland is unremarkable. CT/CT cervical spine wo con IMPRESSION: No acute findings identified in the head or cervical spine. Chronic appearing and degenerative changes as noted above.
[2021-11-21 22:10] VITALS: BP 122/74; PULSE 88; O2SAT 96
[2021-11-21 22:18] VITALS: BP 127/64; PULSE 75; RESP 16; O2SAT 97; BMI 25.1
--- NOTE | 2021-11-21 22:26 | ED.FALL ---
HPI - Fall General Chief Complaint: Fall Stated Complaint: ?fall Time Seen by Provider: 11/21/21 22:13 Source: patient (Patient has cognitive deficits is oriented to person only, lacks insight as to why he is here) and EMS Mode of arrival: EMS Limitations: other (As above, limited this patient is a poor informant secondary to cognitive deficits) History of Present Illness HPI Narrative: 80-year-old male who was brought in to the emergency department from his nursing facility for an unwitnessed fall. The patient was found several feet away from his bed on the floor. The nursing staff believes that he may have fallen out of bed but this was unwitnessed. There was no reported down time and it is unclear when he was last seen. EMS report that the patient complained of right shoulder pain but had no difficulty moving her shoulder. Patient does have known cognitive deficits, he is oriented to person but has no insight as to why he is here in the emergency department MD complaint: fall Onset (ago): unknown Fall from: out of bed Fall witnessed: no Place fall occurred: shelter/SNF Loss of consciousness: unsure Prolonged down time: unclear Symptoms prior to fall: other (Unknown) Context: other (Unknown) Related Data Previous Rx's Medication Instructions Recorded urinary bag ([facility] Urinary Leg Bag) #4 ea 11/28/20 urinary bag (Urinary Leg Bag) #3 ea 11/28/20 donepezil 5 mg tablet 5 mg PO BEDTIME #90 tabs 05/25/21 ciprofloxacin HCl 250 mg tablet 250 mg PO BID 30 days #60 tabs 09/15/21 finasteride 5 mg tablet 5 mg PO DAILY 90 days #90 tabs 09/15/21 atorvastatin 20 mg tablet 20 mg PO DAILY #90 tabs 09/25/21 sulfamethoxazole 800 1 tab PO BID 7 days #14 tabs 10/19/21 mg-trimethoprim 160 mg tablet (Bactrim DS) cephalexin 500 mg capsule 500 mg PO TID 5 days #15 caps 11/22/21 Allergies Allergy/AdvReac Type Severity Reaction Status Date / Time No Known Allergies Allergy Verified 09/25/21 13:58 [No Known Allergies*] Review of Systems Review of Systems: Yes Other (Unobtainable secondary to cognitive deficits) [facility] Past Medical History [facility] Narrative: Past medical history: Hyperlipidemia, BPH, anxiety, cognitive deficits. Social history: The patient resides at a detention facility. He denied tobacco, alcohol and drug use. Medical History (Updated 11/22/21 @ 01:31 by Serg Ruth MD) Cognitive decline Surgical History History of removal of cyst Family History Family History Father Esophageal cancer Mother Cerebral aneurysm Social History Social History Housing: Condominium Alcohol intake: unknown Patient Tobacco Use Status: Never used Tobacco e-Cigarette/Vaping Use: Never Used Second Hand Smoke Exposure: No Advance Directives: No Advance Directives Information Provided: No service: Yes Current occupational status: retired Cognitive needs: No Hearing needs: No Vision needs: Yes (glasses) Physical Exam Vital Signs: Vital Signs: Last Vital Signs Pulse 75 11/21/21 22:18 Resp 16 11/21/21 22:18 BP 127/64 11/21/21 22:18 Pulse Ox 97 11/21/21 22:18 O2 Del Method 11/21/21 22:18 BMI result Body Mass Index 25.1 Const: Other: Awake, alert, elderly male patient, oriented to person only, lacks insight as to why he is here, has no complaints, he is in a C-collar HEENT: Head: Yes normal to inspection, Yes normocephalic and Yes atraumatic Ears: external ears normal General nose exam: Normal external nose present Face and sinus: Yes normal facial exam Mouth: Normal oral and palatal mucosa present Throat: Yes posterior oropharynx normal Eyes: General: appearance normal, both eyes and all related structures Pupils: Equal, round and reactive pupils present Neck: Neck: Yes normal visual inspection, Yes no lymphadenopathy, Yes trachea midline and Yes supple Chest: Chest palpation & inspection: normal inspection of the chest and normal palpation of entire chest wall Resp: Effort & Inspection: normal respiratory effort and able to speak in complete sentences Auscultation: clear to auscultation bilaterally Cardio: Rate: regular rate Rhythm: regular rhythm Heart sounds: S1 normal heart sound present, S2 normal heart sound present and no murmurs GI: Inspection: Yes normal to inspection Palpation (GI): Soft to palpation, nontender and no guarding Auscultation: normal bowel sounds : General: Yes no CVA tenderness Back/Spine/Pelvis: Back: no CVA tenderness Skin: General skin exam: no rashes or lesions noted Neuro: Cranial nerves: Yes CN's II-XII intact bilaterally and Yes Equal, round and reactive pupils present Motor exam (neuro): 5/5 motor strength present throughout Extrem: General: Yes normal to inspection Psych: Appearance: well kempt Speech and movement: Normal speech and movement present Affect: normal affect Attitude: cooperative Course Course Course Narrative: 80-year-old male who resides at a detention facility who was found lying on the floor, several feet away from his bed. The patient's fall was unwitnessed, there was no reported down time. The patient initially complained of right shoulder pain to EMS but has no complaints here in the emergency department. He is oriented to person only and has no insight as to why he is here. He is in a C-collar. Vital signs were normal. Examination was unremarkable. Given his unwitnessed fall and his age I did order laboratory evaluation to include CBC, CMP, lipase, urinalysis (patient has an indwelling Bunch catheter) CPK, CT scan of the head and cervical spine. 0122: Laboratory evaluation: WBC elevated 19,500. BUN elevated 24 with a normal creatinine of 1.2. Glucose elevated 137. CK slightly elevated at 183. Urinalysis revealed 1+ protein, 3+ blood, positive nitrates, 2+ leukocyte esterase. Microscopic revealed 5-9 RBCs, too numerous to count WBCs, 4+ bacteria-this was obtained from the patient's Bunch catheter. Radiology evaluation: CT scan of the head and cervical spine were unremarkable. Given the patient's elevated WBC and positive urinalysis/microscopic I am concerned that he may have a urinary tract infection. I will start the patient on Keflex 500 mg 3 times a day for 5 days. Received his 1st dose of Keflex 500 mg orally here in the emergency department. I did review the patient's last urine culture on 10/22/2021 and he grew greater than 100,000 CFU mixed joey. The patient will be discharged back to his nursing facility. - Fall Lab Data Result diagrams: 11/21/21 22:28 11/21/21 22:28 Labs: Lab Results 11/21/21 11/21/2122 Range/Units 22:28 22:28 22:28 WBC 19.5 H (4.8-10.8) X10*3/uL RBC 4.31 L (4.60-5.80) X10*6/uL Hgb 13.2 L (14.0-18.0) g/dl Hct 40.3 L (42.0-52.0) % MCV 93.5 (80.0-98.0) fL MCH 30.6 (27.0-33.0) pg MCHC 32.8 (31.0-36.0) g/dl RDW 11.7 (11.0-16.0) % Plt Count 387 D (160-400) X10*3/uL MPV 8.9 L (9.4-12.4) fL Immature Gran % (Auto) 0.7 H (0.0-0.4) % Neut % (Auto) 85.7 H (45-73) % Lymph % (Auto) 7.2 L (20-40) % [place] % (Auto) 5.4 (2-11) % Eos % (Auto) 0.8 (0-4) % Baso % (Auto) 0.2 (0-2) % Lymph # (Auto) 1.4 (1.2-4.9) X10*3/uL [place] # (Auto) 1.1 (0.1-1.2) X10*3/uL Eos # (Auto) 0.2 (0.0-0.4) X10*3/uL Baso # (Auto) 0.0 (0.0-0.2) X10*3/uL Abs Immat Gran (auto) 0.13 H (0.00-0.03) X10*3/uL Absolute Neuts (auto) 16.7 H (2.0-8.3) x10*3/uL Absolute Nucleated RBC 0.000 (0.0-0.012) X10*3/uL Nucleated RBC % (auto) 0.0 (0.0-0.2) /100WBC Sodium 142 (135-145) mmol/L Potassium 4.4 (3.3-5.1) mmol/L Chloride 105 (96-108) mmol/L Carbon Dioxide 28 (22-29) mmol/L Anion Gap 13 (12-20) BUN 24 H (9-16) mg/dL Creatinine 1.20 (0.5-1.4) mg/dL Estim Creat Clear Calc 54.0 Estimated GFR 59 Random Glucose 137 H (60-115) mg/dL Calcium 9.4 (8.4-10.2) mg/dL Total Bilirubin 0.5 (0.0-1.0) mg/dL AST 31 (5-37) U/L ALT 51 H (0-40) U/L Alkaline Phosphatase 107 D (39-117) U/L Total Creatine Kinase 183 H (38-174) U/L Total Protein 6.9 (6.5-8.0) g/dL Albumin 3.7 (3.5-5.0) g/dL Lipase 91 H (8-78) U/L Urine Color Urine Appearance Urine pH (5.0-8.0) Ur Specific [place] (1.005-1.025) Urine Protein (NEG-TRACE) MG/DL Urine Glucose (UA) (NEG) MG/DL Urine Ketones (NEG) MG/DL Urine Blood (NEG) Urine Nitrite (NEG) Ur Leukocyte Esterase (NEG) Urine RBC (0) /HPF Urine WBC (0-4) /HPF Ur Squamous Epith Cells /LPF Urine Bacteria /LPF COVID-19 ([facility]) Negative (Negative) COVID-19 Clin Com See Note 11/21/21 Range/Units 22:29 WBC (4.8-10.8) X10*3/uL RBC (4.60-5.80) X10*6/uL Hgb (14.0-18.0) g/dl Hct (42.0-52.0) % MCV (80.0-98.0) fL MCH (27.0-33.0) pg MCHC (31.0-36.0) g/dl RDW (11.0-16.0) % Plt Count (160-400) X10*3/uL MPV (9.4-12.4) fL Immature Gran % (Auto) (0.0-0.4) % Neut % (Auto) (45-73) % Lymph % (Auto) (20-40) % [place] % (Auto) (2-11) % Eos % (Auto) (0-4) % Baso % (Auto) (0-2) % Lymph # (Auto) (1.2-4.9) X10*3/uL [place] # (Auto) (0.1-1.2) X10*3/uL Eos # (Auto) (0.0-0.4) X10*3/uL Baso # (Auto) (0.0-0.2) X10*3/uL Abs Immat Gran (auto) (0.00-0.03) X10*3/uL Absolute Neuts (auto) (2.0-8.3) x10*3/uL Absolute Nucleated RBC (0.0-0.012) X10*3/uL Nucleated RBC % (auto) (0.0-0.2) /100WBC Sodium (135-145) mmol/L Potassium (3.3-5.1) mmol/L Chloride (96-108) mmol/L Carbon Dioxide (22-29) mmol/L Anion Gap (12-20) BUN (9-16) mg/dL Creatinine (0.5-1.4) mg/dL Estim Creat Clear Calc Estimated GFR Random Glucose (60-115) mg/dL Calcium (8.4-10.2) mg/dL Total Bilirubin (0.0-1.0) mg/dL AST (5-37) U/L ALT (0-40) U/L Alkaline Phosphatase (39-117) U/L Total Creatine Kinase (38-174) U/L Total Protein (6.5-8.0) g/dL Albumin (3.5-5.0) g/dL Lipase (8-78) U/L Urine Color YELLOW Urine Appearance TURBID Urine pH 6.0 (5.0-8.0) Ur Specific [place] 1.025 (1.005-1.025) Urine Protein 1+ H (NEG-TRACE) MG/DL Urine Glucose (UA) NEG (NEG) MG/DL Urine Ketones NEG (NEG) MG/DL Urine Blood 3+ H (NEG) Urine Nitrite POS H (NEG) Ur Leukocyte Esterase 2+ H (NEG) Urine RBC 5-9 H (0) /HPF Urine WBC TNTC H (0-4) /HPF Ur Squamous Epith Cells TRACE /LPF Urine Bacteria 4+ /LPF COVID-19 ([facility]) (Negative) COVID-19 Clin Com Discharge Plan Discharge Clinical Impression: Leukocytosis, Urinary tract infection Fall Qualifiers: Encounter type: initial encounter Qualified Code(s): W19.XXXA - Unspecified fall, initial encounter Patient Disposition: er [facility] Instructions: Urinary Tract Infection in Men (ED) Additional Instructions: Your blood work [place] [address] otherwise was unremarkable. Your COVID-[address] test was negative[address] The CT scan of your brain did not reveal any fracture/broken bones or bleeding in your brain. The CT scan of your neck did not reveal any fracture/broken bones Your urine sample was obtained from your Bunch catheter in did reveal too numerous to count white blood cells and 4+ bacteria. Given your high white blood cell count on concerned that you might have a urinary tract infection and I am starting you on Keflex 500 mg 3 times a day for 5 days. You received your 1st dose of Keflex 500 mg orally here in the emergency department. Your doctor will need to check your urine culture result to decide if you need to continue on Keflex or if you need another antibiotic to treat a possible urine infection. Follow-up with your doctor in 2 days. Please return to the emergency department if your symptoms get worse or if you develop any symptoms that are concerning to you. Prescriptions: New cephalexin 500 mg capsule 500 mg PO TID 5 Days Qty: 15 0RF No [facility] donepezil 5 mg tablet 5 mg PO BEDTIME Qty: 90 8RF sulfamethoxazole-trimethoprim [Bactrim DS] 800-160 mg tablet 1 tab PO BID 7 Days Qty: 14 0RF atorvastatin 20 mg tablet 20 mg PO DAILY Qty: 90 8RF (DME) [facility] Urinary Leg Bag Misc See Rx Instructions .MEDSUPPLY Qty: 4 5RF Rx Instructions: Change weekly (DME) Urinary Leg Bag Misc See Rx Instructions .MEDSUPPLY Qty: 3 1RF Rx Instructions: As directed ciprofloxacin HCl 250 mg tablet 250 mg PO BID 30 Days Qty: 60 0RF Label Comments: 1 before and after catheter change Rx Instructions: Take 1 tablet twice a day day before, day of and day after catheter change finasteride 5 mg tablet 5 mg PO DAILY 90 Days Qty: 90 1RF
[2021-11-21 22:34] LABS: Appearance Urine TURBID; Color Urine YELLOW; Glucose Urine UA NEG (NEG); Leukocyte Esterase Urine 2+ (NEG); Nitrite Urine POS (NEG); Specific Gravity - Urine 1.025 (1.005-1.025); UACC Culture Trigger YES; Urine Blood 3+ (NEG); Urine Ketones NEG (NEG); Urine Protein 1+ MG/DL (NEG-TRACE)
[2021-11-21] MEDS: LORazepam 1 MG TABLET PO (22:57)
[2021-11-21 22:58] LABS: Bacteria Urine 4+ /LPF; Squamous Epithelial Cell Urine TRACE /LPF; WBC Urine TNTC /HPF (0-4)
[2021-11-21] MEDS: HaloperidoL 5 MG TABLET PO (22:58)
[2021-11-21 23:04] LABS: MANUAL DIFF FLAG NO
[2021-11-21 23:05] LABS: Basophils Percent Auto 0.2 % (0-2); Eosinophils Absolute Auto 0.2 X10*3/uL (0.0-0.4); Eosinophils Percent Auto 0.8 % (0-4); Hematocrit 40.3 % (42.0-52.0); Hemoglobin 13.2 g/dl (14.0-18.0); Imm Gran Abs Auto 0.13 X10*3/uL (0.00-0.03); Imm Gran Pct Auto 0.7 % (0.0-0.4); Lymphocytes Absolute Auto 1.4 X10*3/uL (1.2-4.9); Lymphocytes Percent Auto 7.2 % (20-40); Mean Corpuscular HGB Conc 32.8 g/dl (31.0-36.0); Mean Corpuscular Hemoglobin 30.6 pg (27.0-33.0); Mean Corpuscular Volume 93.5 fL (80.0-98.0); Mean Platelet Volume 8.9 fL (9.4-12.4); Monocytes Absolute Auto 1.1 X10*3/uL (0.1-1.2); Monocytes Percent Auto 5.4 % (2-11); Neutrophils Absolute Auto 16.7 x10*3/uL (2.0-8.3); Neutrophils Percent Auto 85.7 % (45-73); Platelet Count 387 X10*3/uL (160-400); Red Blood Count 4.31 X10*6/uL (4.60-5.80); Red Cell Distribution Width 11.7 % (11.0-16.0); White Blood Count 19.5 X10*3/uL (4.8-10.8)
[2021-11-21 23:21] LABS: Alanine Aminotransferase 51 U/L (0-40); Albumin Level 3.7 g/dL (3.5-5.0); Alkaline Phosphatase 107 U/L (39-117); Anion Gap 13 (12-20); Aspartate Amino Transferase 31 U/L (5-37); Bilirubin Total 0.5 mg/dL (0.0-1.0); Blood Urea Nitrogen 24 mg/dL (9-16); Calcium 9.4 mg/dL (8.4-10.2); Carbon Dioxide 28 mmol/L (22-29); Chloride 105 mmol/L (96-108); Estimated Glomerular Filt Rate 59; Glucose Random 137 mg/dL (60-115); Lipase 91 U/L (8-78); Potassium 4.4 mmol/L (3.3-5.1); Sodium 142 mmol/L (135-145); Total Protein 6.9 g/dL (6.5-8.0)
[2021-11-21 23:44] LABS: COVID-19 Test Negative (Negative)
[2021-11-22] MEDS: cephALEXin 500 MG CAPSULE PO (01:30)
--- NOTE | 2021-11-22 02:10 | PC.NURSE ---
This US/Pct called [facility] at 0151 for a BLS transfer back to [facility],Booked with a ETA of an hour.Rn aware
== END 2021-11-22 02:33 | disposition skilled nursing facility (03) ==
PROVIDERS: Emergency Provider Emergency Medicine Emergency Medical Services
DX: N39.0 Urinary tract infection, site not specified (principal); D72.829 Elevated white blood cell count, unspecified; Z91.81 History of falling; E78.5 Hyperlipidemia, unspecified; R41.89 Other symptoms and signs involving cognitive functions and awareness; Z20.822 Contact with and (suspected) exposure to COVID-19; Z79.02 Long term (current) use of antithrombotics/antiplatelets; Z96.0 Presence of urogenital implants
CPT/HCPCS: 70450; 72125; 80053; 81001; 82550; 83690; 85025; 87086; 87635; 99283; 99284

== ENCOUNTER 2022-01-28 13:50 | Emergency (ER) | payer OTHER, MEDICARE, SELFPAY ==
--- NOTE | ~2022-01-28 | CT_ITS ---
EXAMINATION: CT ABDOMEN AND PELVIS WITHOUT CONTRAST CLINICAL INFORMATION: Hematuria. COMPARISON: 11/20/2018 TECHNIQUE: Multidetector volumetric imaging was performed from the superior aspect of the liver through the pubic symphysis. Sagittal and coronal reformatted images were obtained on the technologist's workstation. This CT examination was performed using dose optimization techniques as appropriate, variously including the following: *Automated exposure control *Adjustment of mA and/or kV according to patient size (this includes techniques or standardized protocols for targeted exams where dose is matched to indication/reason for exam; i.e. extremities or head) *Use of iterative reconstruction technique DLP: 776 mGy-cm FINDINGS: There is respiratory motion on images through the abdomen. LUNG BASES: No acute findings. No pulmonary consolidation or pleural effusion. There is atherosclerotic calcification of visualized coronary arteries and descending thoracic aorta. LIVER: The liver has normal size, shape, and attenuation. No evidence of liver mass. GALLBLADDER AND BILIARY TREE: Gallbladder is without radiopaque stones, wall thickening or pericholecystic fluid. No dilated bile ducts. PANCREAS: Mild atrophy of the pancreas. No edema, pancreatic ductal dilatation or mass. SPLEEN: Normal. ADRENAL GLANDS: Normal. KIDNEYS AND URETERS: Chronic bilateral perinephric edema is present. Although there is mild left hydroureteronephrosis, no evidence of renal or ureteral stones. No renal masses are seen on this noncontrast examination. BLADDER: The urinary bladder is decompressed by Bunch catheter and not well evaluated. No bladder stones. Diffuse bladder wall thickening was previously observed on 11/20/2018. BOWEL AND PERITONEUM: No dilated bowel loops. No focal bowel wall thickening. No evidence of acute inflammatory change or obstruction along the gastrointestinal tract. No abdominal free fluid or free air. ABDOMINAL WALL: Unremarkable. VASCULATURE: Atherosclerosis of the abdominal aorta and iliac arteries without aneurysm. LYMPH NODES: No pathologic sized lymph nodes in the abdomen or pelvis. No inguinal lymphadenopathy. PELVIC VISCERA: Prostate gland is chronically, mildly enlarged, measures 4.8 cm transverse. SKELETAL: No suspicious bone lesions. Mild multilevel degenerative arthropathy of the visualized spine. CT/CT abdomen pelvis wo IV con IMPRESSION: Prostate gland is chronically, mildly enlarged. The urinary bladder is suboptimally evaluated, decompressed by a Bunch catheter. The bladder wall was diffusely thickened on the prior CT exam of 11/20/2018. Consider possibility of chronic detrusor muscle hypertrophy in the setting of a partial bladder outlet obstruction. This limited examination does not exclude any bladder urothelial neoplasm. It is possible that the mild left hydronephrosis is related to bladder outlet pathology, but this is uncertain. There are no stones within the kidney or ureter.
[2022-01-28 13:55] VITALS: BP 130/84; PULSE 92; O2SAT 98
[2022-01-28 13:56] VITALS: BP 133/73; PULSE 86; RESP 19; TEMP 37.1; O2SAT 97; BMI 24.0
--- NOTE | 2022-01-28 14:13 | ED_ITS ---
HPI - Male Genitourinary General Chief complaint: Urogenital-Female Stated complaint: HEMATURIA Time Seen by Provider: 01/28/22 13:54 Source: patient, EMS and RN notes reviewed Mode of arrival: EMS History of Present Illness HPI Narrative: Patient presents to the emergency department via EMS for evaluation of gross hematuria. Per nursing staff from facility onset was yesterday. It is unclear whether the Dang catheter was replaced and then bleeding developed. No anticoagulant use. Patient is a vague historian due to cognitive deficits. When asked he denies fevers, nausea, vomiting, abdominal pain. Related Data Home Medications Medication Instructions Recorded Confirmed sertraline 25 mg tablet 25 mg PO DAILY 01/28/22 01/28/22 trazodone 50 mg tablet 25 mg PO BEDTIME 01/28/22 01/28/22 Previous Rx's Medication Instructions Recorded urinary bag (Vulcan Urinary Leg Bag) #4 ea 11/28/20 urinary bag (Urinary Leg Bag) #3 ea 11/28/20 finasteride 5 mg tablet 5 mg PO DAILY 90 days #90 tabs 09/15/21 Allergies Allergy/AdvReac Type Severity Reaction Status Date / Time amoxicillin Allergy Unknown Unknown Verified 01/28/22 15:07 [id number] Reductase Allergy Unknown Unknown Verified 01/28/22 15:07 Inhibitor Review of Systems Review of Systems: Genitourinary: Gross hematuria Yes Unobtainable due to mental status (Cognitive deficit baseline) [facility] Past Medical History Attestation statement: The following information was validated with the patient. Source: old records reviewed Medical History Cognitive decline Surgical History History of removal of cyst Family History Family History Father Esophageal cancer Mother Cerebral aneurysm Social History Social History Housing: Condominium Alcohol intake: unknown Patient Tobacco Use Status: Never used Tobacco e-Cigarette/Vaping Use: Never Used Second Hand Smoke Exposure: No Advance Directives: Yes Advance Directives on File: Yes Advance Directives Date on File: 10/22/21 service: Yes Current occupational status: retired Cognitive needs: No Hearing needs: No Vision needs: Yes (glasses) Physical Exam Vital Signs: Vital Signs: Last Vital Signs Temp 98.6 F 01/28/22 17:47 Pulse 80 01/28/22 19:48 Resp 17 01/28/22 19:48 BP 114/72 01/28/22 19:48 Pulse Ox 96 01/28/22 19:48 O2 Del Method 01/28/22 19:48 BMI result Body Mass Index 24.0 Appearance: Alert.?Oriented to person, place and time. No acute distress.?Normal affect. Eyes: Pupils equal, round and reactive to light.? ENT: Pharynx normal.?? Neck: Normal inspection.? Neck supple.?? CVS: Heart sounds normal. Normal heart rate and rhythm.? Pulses normal.?? Respiratory: No respiratory distress.? Lung sounds clear to auscultation bilaterally?? Abdomen: Midline lower abdomen/suprapubic distention and tenderness upon palpation. Normoactive bowel sounds. ?? Genitourinary: Gross hematuria, chronic Dang catheter in place. Skin: Skin warm and dry.? Normal skin color.? ? Extremities: No lower extremity edema.? Neuro: Moves all extremities spontaneously. Sensation intact bilaterally. No focal neuro deficits. Course Course Course Narrative: Patient is a 81-year-old male with a past medical history of hyperlipidemia, BPH, anxiety, cognitive deficits, chronic Dang catheter secondary to urinary retention presents emergency department today for evaluation of hematuria. Upon physical exam has distension over lower abdomen/suprapubic region and significant tenderness upon palpation, Dang catheter in place at urethra no bleeding surrounding insertion site. At 1400 bladder scan reveals >1,000mL. Reviewed plan of care with nursing staff Dang catheter to be replaced at this time will obtain basic labs, urinalysis, CT ABD/ pelvis. Reevaluation(s) Reevaluation #1: 18 Faroese coude tip catheter inserted by nursing staff without complication. Catheter draining maroon colored urine, initial output of 1500mL. CBC reveals a leukocytosis at 14.1, normocytic anemia H&H 12.1 and 37.6 consistent with baseline. CMP is overall unremarkable, BUN mildly elevated at 23 likely secondary to dehydration although this appears to be consistent with his baseline creatinine 1.40 consistent with baseline as well. Coag studies are normal. Urinalysis reveals large amount of blood as well as large amount of leukocyte esterase, and bacteria concerning for urinary tract infection, given SIRS leukocytosis will obtain blood cultures and lactic acid at this time prior to ceftriaxone IV. No tachycardia, tachypnea, hypoxia, or fever at this time. Time: 15:04 Reevaluation #2: Lactic acid is elevated at 3.6, patient to receive normal saline 30 mL/kg fluid bolus, for urosepsis. Time: 16:03 Reevaluation #3: CT reveals chronically enlarged prostate gland, mild left hydronephrosis, no renal calculi. Spoke with hospitalist Dr. Dow, who accepts patient for admission to medicine service for urosepsis Time: 17:45 Additional Reevaluation(s): 1929: Advised by nursing staff that patient family contacted for an update, advised staff that patient is currently on hospice, not previously made aware of this. Spoke with Hospice nurse Radha, who reports 3 attempts of dang catheter insertion before patient was sent to ER. Patient started on Hospice October 2021 for significant decline and worsening dementia after a hospitalization however had been improving significantly lately, and was considering removing patient from hospice. patients HCP is sister Cindy Finch, discussed urosepsis based on findings,given recent debate of removing patient from hospice, reviewed options for hospital admission for IV antibiotics, following blood cultures, however, HCP would like patient to be discharged back to [facility] facility on oral antibiotics and to remain on hospice. MDM - Male Genitourinary Medical Records Attestation: I reviewed the patient's medical records. Lab Data Attestation: I reviewed the patient's lab results. Result diagrams: 01/28/22 14:27 01/28/22 14:27 Labs: Lab Results 01/28/22 01/28/22 01/28/22 Range/Units 14:27 14:27 14:27 WBC 14.1 H (4.8-10.8) X10*3/uL RBC 4.05 L (4.60-5.80) X10*6/uL Hgb 12.1 L (14.0-18.0) g/dl Hct 37.6 L (42.0-52.0) % MCV 92.8 (80.0-98.0) fL MCH 29.9 (27.0-33.0) pg MCHC 32.2 (31.0-36.0) g/dl RDW 13.4 (11.0-16.0) % Plt Count 296 (160-400) X10*3/uL MPV 8.4 L (9.4-12.4) fL Immature Gran % (Auto) 0.7 H (0.0-0.4) % Neut % (Auto) 87.6 H (45-73) % Lymph % (Auto) 5.1 L (20-40) % Karnes % (Auto) 6.3 (2-11) % Eos % (Auto) 0.1 (0-4) % Baso % (Auto) 0.2 (0-2) % Lymph # (Auto) 0.7 L (1.2-4.9) X10*3/uL Karnes # (Auto) 0.9 (0.1-1.2) X10*3/uL Eos # (Auto) 0.0 (0.0-0.4) X10*3/uL Baso # (Auto) 0.0 (0.0-0.2) X10*3/uL Abs Immat Gran (auto) 0.10 H (0.00-0.03) X10*3/uL Absolute Neuts (auto) 12.3 H (2.0-8.3) x10*3/uL Absolute Nucleated RBC 0.000 (0.0-0.012) X10*3/uL Nucleated RBC % (auto) 0.0 (0.0-0.2) /100WBC PT 11.5 (10.0-13.1) SEC INR 1.0 (0.9-1.1) APTT 27.8 (26.0-36.4) SEC Sodium 137 (135-145) mmol/L Potassium 4.7 (3.3-5.1) mmol/L Chloride 102 (96-108) mmol/L Carbon Dioxide 20 L (22-29) mmol/L Anion Gap 20 (12-20) BUN 23 H (9-16) mg/dL Creatinine 1.40 (0.5-1.4) mg/dL Estim Creat Clear Calc 42.7 Estimated GFR 49 Random Glucose 181 H (60-115) mg/dL Lactic Acid (0.5-2.0) mmol/L Lactic Acid F/U @ 2Hr (0.5-2.0) mmol/L Calcium 9.1 (8.4-10.2) mg/dL Total Bilirubin 0.5 (0.0-1.0) mg/dL AST 16 D (5-37) U/L ALT 19 (0-40) U/L Alkaline Phosphatase 101 (39-117) U/L Total Protein 6.5 (6.5-8.0) g/dL Albumin 3.8 (3.5-5.0) g/dL Urine Color Urine Appearance Urine pH (5.0-9.0) Ur Specific Dumas (1.005-1.025) Urine Protein (Neg-Trace) mg/dL Urine Glucose (UA) (Negative) mg/dL Urine Ketones (Negative) mg/dL Urine Blood (Negative) Urine Nitrite (Negative) Ur Leukocyte Esterase (Negative) Urine RBC (0-2) /HPF Urine WBC (0-5) /HPF Ur Squamous Epith Cells (0-2) /HPF Urine Bacteria (None Seen) Hyaline Casts (0-2) /LPF COVID-19 (LIBIA) (Negative) COVID-19 Clin Com 01/28/22 01/28/22 01/28/22 Range/Units 14:35 15:22 17:48 WBC (4.8-10.8) X10*3/uL RBC (4.60-5.80) X10*6/uL Hgb (14.0-18.0) g/dl Hct (42.0-52.0) % MCV (80.0-98.0) fL MCH (27.0-33.0) pg MCHC (31.0-36.0) g/dl RDW (11.0-16.0) % Plt Count (160-400) X10*3/uL MPV (9.4-12.4) fL Immature Gran % (Auto) (0.0-0.4) % Neut % (Auto) (45-73) % Lymph % (Auto) (20-40) % Karnes % (Auto) (2-11) % Eos % (Auto) (0-4) % Baso % (Auto) (0-2) % Lymph # (Auto) (1.2-4.9) X10*3/uL Karnes # (Auto) (0.1-1.2) X10*3/uL Eos # (Auto) (0.0-0.4) X10*3/uL Baso # (Auto) (0.0-0.2) X10*3/uL Abs Immat Gran (auto) (0.00-0.03) X10*3/uL Absolute Neuts (auto) (2.0-8.3) x10*3/uL Absolute Nucleated RBC (0.0-0.012) X10*3/uL Nucleated RBC % (auto) (0.0-0.2) /100WBC PT (10.0-13.1) SEC INR (0.9-1.1) APTT (26.0-36.4) SEC Sodium (135-145) mmol/L Potassium (3.3-5.1) mmol/L Chloride (96-108) mmol/L Carbon Dioxide (22-29) mmol/L Anion Gap (12-20) BUN (9-16) mg/dL Creatinine (0.5-1.4) mg/dL Estim Creat Clear Calc Estimated GFR Random Glucose (60-115) mg/dL Lactic Acid 3.6 H* (0.5-2.0) mmol/L Lactic Acid F/U @ 2Hr 2.1 H* (0.5-2.0) mmol/L Calcium (8.4-10.2) mg/dL Total Bilirubin (0.0-1.0) mg/dL AST (5-37) U/L ALT (0-40) U/L Alkaline Phosphatase (39-117) U/L Total Protein (6.5-8.0) g/dL Albumin (3.5-5.0) g/dL Urine Color RED Urine Appearance Cloudy Urine pH >= 9.0 (5.0-9.0) Ur Specific Dumas 1.010 (1.005-1.025) Urine Protein 100 (2+) H (Neg-Trace) mg/dL Urine Glucose (UA) Negative (Negative) mg/dL Urine Ketones Negative (Negative) mg/dL Urine Blood Large (3+) H (Negative) Urine Nitrite Negative (Negative) Ur Leukocyte Esterase Large (3+) H (Negative) Urine RBC >20 H (0-2) /HPF Urine WBC 11-20 H (0-5) /HPF Ur Squamous Epith Cells 0-2 (0-2) /HPF Urine Bacteria 4+ (None Seen) Hyaline Casts 0-2 (0-2) /LPF COVID-19 (LIBIA) (Negative) COVID-19 Clin Com 01/28/22 Range/Units 18:22 WBC (4.8-10.8) X10*3/uL RBC (4.60-5.80) X10*6/uL Hgb (14.0-18.0) g/dl Hct (42.0-52.0) % MCV (80.0-98.0) fL MCH (27.0-33.0) pg MCHC (31.0-36.0) g/dl RDW (11.0-16.0) % Plt Count (160-400) X10*3/uL MPV (9.4-12.4) fL Immature Gran % (Auto) (0.0-0.4) % Neut % (Auto) (45-73) % Lymph % (Auto) (20-40) % Karnes % (Auto) (2-11) % Eos % (Auto) (0-4) % Baso % (Auto) (0-2) % Lymph # (Auto) (1.2-4.9) X10*3/uL Karnes # (Auto) (0.1-1.2) X10*3/uL Eos # (Auto) (0.0-0.4) X10*3/uL Baso # (Auto) (0.0-0.2) X10*3/uL Abs Immat Gran (auto) (0.00-0.03) X10*3/uL Absolute Neuts (auto) (2.0-8.3) x10*3/uL Absolute Nucleated RBC (0.0-0.012) X10*3/uL Nucleated RBC % (auto) (0.0-0.2) /100WBC PT (10.0-13.1) SEC INR (0.9-1.1) APTT (26.0-36.4) SEC Sodium (135-145) mmol/L Potassium (3.3-5.1) mmol/L Chloride (96-108) mmol/L Carbon Dioxide (22-29) mmol/L Anion Gap (12-20) BUN (9-16) mg/dL Creatinine (0.5-1.4) mg/dL Estim Creat Clear Calc Estimated GFR Random Glucose (60-115) mg/dL Lactic Acid (0.5-2.0) mmol/L Lactic Acid F/U @ 2Hr (0.5-2.0) mmol/L Calcium (8.4-10.2) mg/dL Total Bilirubin (0.0-1.0) mg/dL AST (5-37) U/L ALT (0-40) U/L Alkaline Phosphatase (39-117) U/L Total Protein (6.5-8.0) g/dL Albumin (3.5-5.0) g/dL Urine Color Urine Appearance Urine pH (5.0-9.0) Ur Specific Dumas (1.005-1.025) Urine Protein (Neg-Trace) mg/dL Urine Glucose (UA) (Negative) mg/dL Urine Ketones (Negative) mg/dL Urine Blood (Negative) Urine Nitrite (Negative) Ur Leukocyte Esterase (Negative) Urine RBC (0-2) /HPF Urine WBC (0-5) /HPF Ur Squamous Epith Cells (0-2) /HPF Urine Bacteria (None Seen) Hyaline Casts (0-2) /LPF COVID-19 (LIBIA) Negative (Negative) COVID-19 Clin Com See Note Imaging Data CT scan - abdomen: Radiologist's impression: CT/CT abdomen pelvis wo IV con IMPRESSION: Prostate gland is chronically, mildly enlarged. The urinary bladder is suboptimally evaluated, decompressed by a Dang catheter. The bladder wall was diffusely thickened on the prior CT exam of 11/20/2018. Consider possibility of chronic detrusor muscle hypertrophy in the setting of a partial bladder outlet obstruction. This limited examination does not exclude any bladder urothelial neoplasm. It is possible that the mild left hydronephrosis is related to bladder outlet pathology, but this is uncertain. There are no stones within the kidney or ureter. ? Discharge Plan Discharge Clinical Impression: BPH w urinary obs/LUTS, Urinary tract infection Patient Disposition: Xfer [facility] Transfer Details: [facility]
[2022-01-28] MEDS: Lidocaine HCl 2 % Urojet 10 ML JEL.PF.APP TOPICAL (14:31)
--- NOTE | 2022-01-28 14:36 | PC.NURSE ---
18coude placed, pt tolerated well, removed dang only had 5 of 20 cc fluid in it, pt draining blood tinged/reddish brown urine, was 999ml + via bladder scan, 1500ml has drained thus far
[2022-01-28 14:38] LABS: MANUAL DIFF FLAG NO
[2022-01-28 14:39] LABS: Basophils Percent Auto 0.2 % (0-2); Eosinophils Percent Auto 0.1 % (0-4); Hematocrit 37.6 % (42.0-52.0); Hemoglobin 12.1 g/dl (14.0-18.0); Imm Gran Pct Auto 0.7 % (0.0-0.4); Lymphocytes Absolute Auto 0.7 X10*3/uL (1.2-4.9); Lymphocytes Percent Auto 5.1 % (20-40); Mean Corpuscular HGB Conc 32.2 g/dl (31.0-36.0); Mean Corpuscular Hemoglobin 29.9 pg (27.0-33.0); Mean Corpuscular Volume 92.8 fL (80.0-98.0); Mean Platelet Volume 8.4 fL (9.4-12.4); Monocytes Absolute Auto 0.9 X10*3/uL (0.1-1.2); Monocytes Percent Auto 6.3 % (2-11); Neutrophils Absolute Auto 12.3 x10*3/uL (2.0-8.3); Neutrophils Percent Auto 87.6 % (45-73); Platelet Count 296 X10*3/uL (160-400); Red Blood Count 4.05 X10*6/uL (4.60-5.80); Red Cell Distribution Width 13.4 % (11.0-16.0); White Blood Count 14.1 X10*3/uL (4.8-10.8)
[2022-01-28 14:44] LABS: Prothrombin Time 11.5 SEC (10.0-13.1)
[2022-01-28 14:47] LABS: Partial Thromboplastin Time 27.8 SEC (26.0-36.4)
[2022-01-28 14:50] LABS: Appearance Urine Cloudy; Color Urine RED; Glucose Urine UA Negative (Negative); Leukocyte Esterase Urine Large (3+) (Negative); Nitrite Urine Negative (Negative); PH >= 9.0 (5.0-9.0); UMIC TRIGGER UACC YES; Urine Blood Large (3+) (Negative); Urine Ketones Negative (Negative); Urine Protein 100 (2+) mg/dL (Neg-Trace)
[2022-01-28 14:54] LABS: Alanine Aminotransferase 19 U/L (0-40); Albumin Level 3.8 g/dL (3.5-5.0); Alkaline Phosphatase 101 U/L (39-117); Anion Gap 20 (12-20); Aspartate Amino Transferase 16 U/L (5-37); Bilirubin Total 0.5 mg/dL (0.0-1.0); Blood Urea Nitrogen 23 mg/dL (9-16); Calcium 9.1 mg/dL (8.4-10.2); Carbon Dioxide 20 mmol/L (22-29); Chloride 102 mmol/L (96-108); Creatinine Clr Calc Pharmacy 42.7; Estimated Glomerular Filt Rate 49; Glucose Random 181 mg/dL (60-115); Potassium 4.7 mmol/L (3.3-5.1); Sodium 137 mmol/L (135-145); Total Protein 6.5 g/dL (6.5-8.0)
[2022-01-28 14:58] LABS: Bacteria Urine 4+ (None Seen); Hyaline Casts Urine 0-2 /LPF (0-2); RBC Urine >20 /HPF (0-2); Squamous Epithelial Cell Urine 0-2 /HPF (0-2); UACC Culture Trigger YES
[2022-01-28] MEDS: cefTRIAXone sodium 1 GM in 0.9 % Sodium Chloride 50 ML IV (15:34)
[2022-01-28 15:53] LABS: Lactic Acid 3.6 mmol/L (0.5-2.0)
[2022-01-28] MEDS: 0.9 % Sodium Chloride 2,121 ML 2121 ML IV (16:09)
--- NOTE | 2022-01-28 16:10 | PC.NURSE ---
pt alert but very confused at baseline, pulling on blankets and medical equipment, dang in place and draining well, hematuria noticed, emptied 1200 ml of urine
[2022-01-28 17:30] LABS: Reflex Lactate? Lactic Acid Added
[2022-01-28 17:47] VITALS: BP 109/64; PULSE 83; RESP 16; TEMP 37; O2SAT 98
[2022-01-28 18:08] LABS: ~Lactic Acid-LAB USE ONLY 2.1 mmol/L (0.5-2.0)
[2022-01-28 18:41] LABS: COVID-19 Test Negative (Negative); IDNOW Serial# 55D5AD1C
[2022-01-28 19:48] VITALS: BP 114/72; PULSE 80; RESP 17; O2SAT 96
[2022-01-28 19:54] LABS: Reflex Lactate? 2 Y
--- NOTE | 2022-01-28 20:17 | PC.NURSE ---
CALL OUT TO [facility] @2018 SPOKE TO YENNI FOR A BLS TRANSFER BACK TO [facility] IS GOING TO PASS TRANSPORT TO ANOTHER AMBULANCE COMPANY
[2022-01-28 20:39] LABS: ~Lactic Acid-LAB USE ONLY 1.2 mmol/L (0.5-2.0)
--- NOTE | 2022-01-28 21:02 | PC.NURSE ---
Patient will return to SNF. Report given to Skip SEXTON. antibitoics to start tomorrow. Report to EMS
--- NOTE | 2022-01-28 21:39 | PC.NURSE ---
1200ml dark urine emptied piror to D/C
== END 2022-01-28 21:25 | disposition skilled nursing facility (03) ==
LOC: HO.ED 14:13 → HO.EDOVER 19:51
PROVIDERS: Nurse Practitioner Family; Emergency Provider Emergency Medicine; PCP Internal Medicine
DX: N39.0 Urinary tract infection, site not specified (principal); B96.89 Other specified bacterial agents as the cause of diseases classified elsewhere; R31.9 Hematuria, unspecified; N13.30 Unspecified hydronephrosis; N40.1 Benign prostatic hyperplasia with lower urinary tract symptoms; R33.8 Other retention of urine; R39.14 Feeling of incomplete bladder emptying; E78.5 Hyperlipidemia, unspecified; R41.89 Other symptoms and signs involving cognitive functions and awareness; Z96.0 Presence of urogenital implants; Z79.899 Other long term (current) drug therapy; Z20.822 Contact with and (suspected) exposure to COVID-19
CPT/HCPCS: 36415; 51702; 51798; 74176; 80053; 81001; 83605; 85025; 85610; 85730; 87040; 87086; 87088; 87186; 87635; 96361; 96365; 99284; J0696